=== PATIENT | female | born 1970 | race Caucasian/White ===

== ENCOUNTER 2022-05-01 11:34 | Emergency (ER) | payer OTHER, SELFPAY ==
[2022-05-01 11:44] VITALS: BP 128/60; PULSE 65; RESP 18; TEMP 37; O2SAT 98; BMI 21.0
--- NOTE | 2022-05-01 15:30 | ED_ITS ---
HPI - General Adult General Time Seen by Provider: 15:31 Date Seen: 05/01/22 Chief complaint: Headache/Migraine Stated complaint: Vomiting, headache, fatigue Time Seen by Provider: 05/01/22 15:30 Source: patient, family, RN notes reviewed and old records reviewed Mode of arrival: ambulatory Limitations: no limitations History of Present Illness HPI narrative: Justa is a 51-year-old female diagnosed with hemochromatosis in February who comes to the emergency room with increasing vomiting frequency. Patient had the onset of excessive fatigue August of 2021. Through various testing she was found to have hemochromatosis. Both of her parents have the same. 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 She does know that her iron has been elevated. She has noted increasing vomiting frequency that is spontaneous. She notes that she is nauseated after eating all of her meals and thus does not want to eat. She states that she feels full all the time. She notes that she has a low heart rate but admits that she is a runner. She states she feels hot and then cold all the time and even has sweating into her clothes. She was taken off her hormones in February of this year. She states that occasionally she has some loose stools associated with vomiting but some time she does not. She denies a history of runny nose, cough or COVID symptoms. Her liver specialist is Dr. Aleman of [facility] at the [place] site. She is due to see a conductor pullman in May. Patient has had 1 over your removed otherwise retains her gallbladder and appendix. She denies pain at this time but does note a mild headache. Related Data Home Medications Medication Instructions Recorded Confirmed sertraline 50 mg tablet mg 05/01/22 Allergies Allergy/AdvReac Type Severity Reaction Status Date / Time No Known Drug Allergies Allergy Verified 12/24/21 09:43 Review of Systems Status of ROS: Reports: 10 or more systems reviewed and unremarkable except as noted in History and below Const: Reports: fatigue; Denies: fever or chills Eyes: Denies: change in vision ENMT: Denies: throat pain, difficulty swallowing or nasal discharge Cardio: Denies: chest pain, palpitations, swelling of feet/ankles or shortness of breath with exertion Resp: Denies: shortness of breath or cough GI: Reports: nausea and vomiting; Denies: abdominal pain or difficulty swallowing : Denies: painful urination or urinary frequency Musculo: Denies: back pain Neuro: Reports: headache (Mild) Endo: Reports: fatigue PFSH PFSH Social History Smoking Status: Unknown if ever smoked Do you use any of these nicotine containing products: None How often do you have a drink containing alcohol: never AUDIT-C Alcohol total score: 0 Non-prescribed substance use: denies use Exam Narrative: Exam Narrative: Patient is alert and oriented. Nontoxic in appearance. She is thin but not cachectic. Face is symmetrical. Oral cavity with moist mucous membranes. Neck is supple without lymphadenopathy. Heart is with regular rate and rhythm. Lungs are clear to auscultation. Abdomen is soft nontender. No masses palpated Lower extremities without edema or calf tenderness. Const: Vital Signs, click to edit/add: Vital Signs - 24 hr 05/01/22 11:44 Temperature 98.6 F Pulse Rate [Pulse Oximeter] 65 Respiratory Rate 18 Blood Pressure [Ri ght Upper Arm] 128/60 Pulse Oximetry 98 Oxygen Delivery Me thod Room Air Documenting provider has reviewed patient's vital signs: yes Course Course Hospital Course: At this time will contact [facility] for consultation. Will order CBC, comprehensive, CRP, iron studies, urinalysis. Consultations Consultation #1: At the pleasure of speaking with [facility] specialist Dr. Interiano. Vital Signs Vital signs: Initial Vital Signs Temperature 98.6 F 05/01/22 11:44 Temperature Source Temporal Artery Scan 05/01/22 11:44 Pulse Rate 65 05/01/22 11:44 Respiratory Rate 18 05/01/22 11:44 Blood Pressure 128/60 05/01/22 11:44 Blood Pressure Mean 82 05/01/22 11:44 Blood Pressure Position Sitting 05/01/22 11:44 Pulse Oximetry 98 05/01/22 11:44 Oxygen Delivery Method 05/01/22 11:44 Vital Signs Temperature 98.6 F 05/01/22 11:44 Pulse Rate 65 05/01/22 11:44 Respiratory Rate 18 05/01/22 11:44 Blood Pressure 128/60 05/01/22 11:44 Pulse Oximetry 98 05/01/22 11:44 Oxygen Delivery Method 05/01/22 11:44 Temperature 98.6 F 05/01/22 11:44 Pulse Rate 65 05/01/22 11:44 Respiratory Rate 18 05/01/22 11:44 Blood Pressure 128/60 05/01/22 11:44 Pulse Oximetry 98 05/01/22 11:44 Oxygen Delivery Method 05/01/22 11:44 Medical Decision Making MDM Narrative Medical decision making narrative: 1. Vomiting-no vomiting here in the emergency room. Fortunately electrolytes are within normal limits. Zofran 4 mg ODT given out of [employer] meds machine. 2. . Hemochromatosis-patient noted to have increased iron level to 253 from 166 at previous laboratory draw. TIBC is 168 bilirubin 1.8. Patient really has no abdominal discomfort at this time. Recommend follow-up with GI specialist as she may need some treatment. I did have the pleasure of speaking with me [facility] specialist Dr. Interiano who agreed with Zofran and follow up with primary GI specialist. 4. Disposition-home at this time. Return for worsening symptoms and as needed. Patient satisfied with our plan at this time. She is asking about exercising and will allow her to do this. I asked that she exercise and moderation however. Abdomen is benign at this time. Vital signs are reassuring. Return to the emergency room as needed. Medical Records Medical records reviewed: Yes I reviewed the patient's medical records Lab Data Lab results reviewed: Yes I reviewed the patient's lab results Labs: Lab Results 05/01/22 05/01/22 05/01/22 Range/Units 15:43 15:59 15:59 WBC 7.43 (4.50-11.00) K/uL RBC 5.25 H (4.00-5.20) m/uL Hgb 16.2 H (12.0-16.0) gm/dL Hct 49.4 (33.0-51.0) % MCV 94 (80-100) fL MCH 31 (26-34) pg MCHC 33 (32-36) gm/dL RDW Coeff of Reyna 12.4 (11.5-15.5) % Plt Count 153 (140-440) K/uL Neut % (Auto) 64.2 (42.0-72.0) % Lymph % (Auto) 28.1 (20-44) % [place] % (Auto) 6.9 (0.0-11.0) % Eos % (Auto) 0.4 (0.0-7.0) % Baso % (Auto) 0.3 (0.0-3.0) % Neut # (Auto) 4.77 (1.7-7.0) K/uL Lymph # (Auto) 2.09 (0.90-2.90) K/uL [place] # (Auto) 0.50 (0.00-0.90) K/UL Eos # (Auto) 0.03 (0.00-0.50) K/uL Baso # (Auto) 0.02 (0.00-0.30) K/uL Abs Immat Gran (auto) 0.01 (0.00-0.30) K/uL Imm/Tot Granulo (auto) 0.1 % Sodium 144 (135-149) mmol/L Potassium 3.6 (3.6-5.1) mmol/L Chloride 104 (96-114) mmol/L Carbon Dioxide 29 (20-32) mmol/L BUN 16 (7-30) mg/dL Creatinine 0.8 (0.5-1.5) mg/dL Estimated Creat Clear 77.45 Estimated GFR 89 ml/min Glucose 96 (60-115) mg/dL Calcium 9.6 (8.4-10.6) mg/dL Iron (37-170) ug/dL TIBC (265-497) ug/dL % Saturation (20-50) % Total Bilirubin 1.8 H (0.1-1.5) mg/dL AST 41 H (12-35) U/L ALT 108 H (4-35) U/L Alkaline Phosphatase 55 (40-150) U/L C-Reactive Protein < 0.5 L (0.5-1.0) mg/dL Total Protein 8.0 (6.0-8.3) g/dL Albumin 5.0 (3.3-5.0) g/dL TSH (0.270-4.20) uIU/mL Urine Color Yellow (Yellow) Urine Appearance Clear (Clear) Urine pH 6.5 (5.0-8.5) Ur Specific [place] 1.015 (1.000-1.030) Urine Protein Negative (Negative) Urine Glucose (UA) Negative (Negative) Urine Ketones Negative (Negative) Urine Blood Trace-intact A (Negative) Urine Nitrite Negative (Negative) Urine Bilirubin Negative (Negative) Urine Urobilinogen 0.2 (0.2-1.0) Ur Leukocyte Esterase Trace A (Negative) Urine RBC 2-5 A (0-2) Urine WBC 2-5 (0-5) Ur Squamous Epith Cells None (None-Few) Urine Bacteria None (None) SARS-CoV-2 (PCR) (Negative) Influenza Type A (PCR) (Negative) Influenza Type B (PCR) (Negative) 05/01/22 05/01/22 05/01/22 Range/Units 15:59 15:59 16:42 WBC (4.50-11.00) K/uL RBC (4.00-5.20) m/uL Hgb (12.0-16.0) gm/dL Hct (33.0-51.0) % MCV (80-100) fL MCH (26-34) pg MCHC (32-36) gm/dL RDW Coeff of Reyna (11.5-15.5) % Plt Count (140-440) K/uL Neut % (Auto) (42.0-72.0) % Lymph % (Auto) (20-44) % [place] % (Auto) (0.0-11.0) % Eos % (Auto) (0.0-7.0) % Baso % (Auto) (0.0-3.0) % Neut # (Auto) (1.7-7.0) K/uL Lymph # (Auto) (0.90-2.90) K/uL [place] # (Auto) (0.00-0.90) K/UL Eos # (Auto) (0.00-0.50) K/uL Baso # (Auto) (0.00-0.30) K/uL Abs Immat Gran (auto) (0.00-0.30) K/uL Imm/Tot Granulo (auto) % Sodium (135-149) mmol/L Potassium (3.6-5.1) mmol/L Chloride (96-114) mmol/L Carbon Dioxide (20-32) mmol/L BUN (7-30) mg/dL Creatinine (0.5-1.5) mg/dL Estimated Creat Clear Estimated GFR ml/min Glucose (60-115) mg/dL Calcium (8.4-10.6) mg/dL Iron 253 H (37-170) ug/dL TIBC 168 L (265-497) ug/dL % Saturation 151 H (20-50) % Total Bilirubin (0.1-1.5) mg/dL AST (12-35) U/L ALT (4-35) U/L Alkaline Phosphatase (40-150) U/L C-Reactive Protein (0.5-1.0) mg/dL Total Protein (6.0-8.3) g/dL Albumin (3.3-5.0) g/dL TSH 2.770 (0.270-4.20) uIU/mL Urine Color (Yellow) Urine Appearance (Clear) Urine pH (5.0-8.5) Ur Specific [place] (1.000-1.030) Urine Protein (Negative) Urine Glucose (UA) (Negative) Urine Ketones (Negative) Urine Blood (Negative) Urine Nitrite (Negative) Urine Bilirubin (Negative) Urine Urobilinogen (0.2-1.0) Ur Leukocyte Esterase (Negative) Urine RBC (0-2) Urine WBC (0-5) Ur Squamous Epith Cells (None-Few) Urine Bacteria (None) SARS-CoV-2 (PCR) Negative SARS-CoV-2 (Negative) Influenza Type A (PCR) Negative PCR FLU A (Negative) Influenza Type B (PCR) Negative PCR FLU B (Negative) Discharge Plan Discharge Clinical Impression: Hemochromatosis, Nausea & vomiting Patient Disposition: Home, Self-Care Condition: Improved Additional Instructions: Zofran may be used for nausea. Follow-up with your [facility] physician as you may need treatment for hemochromatosis. I would also recommend follow-up with OBGYN to see if they can help with hot flash episodes. Return to the emergency room as needed. Prescriptions: No Action sertraline 50 mg tablet Label Comments: TAKE 1 TABLET BY MOUTH EVERY MORNING. Follow Up/Referrals: Rayna Santos MD [Primary Care Provider] - Stand Alone Forms: [employer] Info Instructions
[2022-05-01 15:59] LABS: Appearance Urine Clear (Clear); Bilirubin Urine Negative (Negative); Blood Urine Trace-intact (Negative); Color Urine Yellow (Yellow); Glucose Urine Negative (Negative); Ketones Urine Negative (Negative); Leukocyte Esterase Urine Trace (Negative); Nitrite Urine Negative (Negative); Protein Urine Negative (Negative); Specific Gravity Urine 1.015 (1.000-1.030); Urobilinogen Urine 0.2 (0.2-1.0); pH Urine 6.5 (5.0-8.5)
[2022-05-01 16:06] LABS: Basophils Absolute Auto 0.02 K/uL (0.00-0.30); Basophils Percent Auto 0.3 % (0.0-3.0); Eosinophils Absolute Auto 0.03 K/uL (0.00-0.50); Eosinophils Percent Auto 0.4 % (0.0-7.0); Hematocrit 49.4 % (33.0-51.0); Hemoglobin* 16.2 gm/dL (12.0-16.0); Immature Granulocytes Abs Auto 0.01 K/uL (0.00-0.30); Immature Granulocytes Pct Auto 0.1 %; Lymphocytes Absolute Auto 2.09 K/uL (0.90-2.90); Lymphocytes Percent Auto 28.1 % (20-44); Mean Corpuscular HGB Conc 33 gm/dL (32-36); Mean Corpuscular Hemoglobin 31 pg (26-34); Mean Corpuscular Volume 94 fL (80-100); Monocytes Percent Auto 6.9 % (0.0-11.0); Neutrophils Absolute Auto 4.77 K/uL (1.7-7.0); Neutrophils Percent Auto 64.2 % (42.0-72.0); Platelet Count* 153 K/uL (140-440); RDW Coefficient of Variation % 12.4 % (11.5-15.5); Red Blood Count 5.25 m/uL (4.00-5.20); White Blood Count* 7.43 K/uL (4.50-11.00)
[2022-05-01 16:11] LABS: Slide Review Reflex No
[2022-05-01 16:23] LABS: Chloride* 104 mmol/L (96-114); Potassium* 3.6 mmol/L (3.6-5.1); Sodium* 144 mmol/L (135-149)
[2022-05-01 16:25] LABS: Creatinine* 0.8 mg/dL (0.5-1.5); Est. Creatinine Clearance* 77.45; Estimated Glomerular Filt Rate 89 ml/min; Iron* 253 ug/dL (37-170)
[2022-05-01 16:26] LABS: Alanine Aminotransferase* 108 U/L (4-35); Alkaline Phosphatase* 55 U/L (40-150); Aspartate Amino Transferase* 41 U/L (12-35); Bilirubin Total* 1.8 mg/dL (0.1-1.5); Blood Urea Nitrogen* 16 mg/dL (7-30); Carbon Dioxide* 29 mmol/L (20-32); Glucose* 96 mg/dL (60-115)
[2022-05-01 16:27] LABS: Calcium* 9.6 mg/dL (8.4-10.6)
[2022-05-01 16:34] LABS: Total Iron Binding Capacity 168 ug/dL (265-497)
[2022-05-01 16:39] LABS: C Reactive Protein* < 0.5 mg/dL (0.5-1.0); Percent Iron Saturation 151 % (20-50)
[2022-05-01 17:50] LABS: PCR FLU A Negative PCR FLU A (Negative); PCR FLU B Negative PCR FLU B (Negative)
[2022-05-01 17:53] LABS: SARS PCR* Negative SARS-CoV-2 (Negative)
== END 2022-05-01 17:32 | disposition home or self-care (01) ==
PROVIDERS: Emergency Provider Family Medicine; PCP Family Medicine
DX: R11.10 Vomiting, unspecified (principal); E83.110 Hereditary hemochromatosis
CPT/HCPCS: 36415; 80053; 81001; 83540; 83550; 84443; 85025; 86140; 87631; 99283; 99284